=== PATIENT | female | born 1950 | race Caucasian/White ===

== ENCOUNTER 2020-12-10 05:49 | Day surgery (SDC) | payer MEDICARE ==
[2020-12-09 12:31] VITALS: BMI 27.6
[2020-12-10] MEDS ORDERED: EPINEPHrine 0.3 MG in Ophthalmic Irrigation Solution 500 ML IRR SCH (06:00)
[2020-12-10] MEDS ORDERED: Cyclopentolate 1% Opth Drop 2 ML BOT ONE (06:16)
[2020-12-10] MEDS ORDERED: Phenylephrine 2.5% Ophth Soln 5 ML BOT ONE (06:16)
[2020-12-10] MEDS ORDERED: Fentanyl 100 MCG/2 ML VIAL ONE (06:32)
[2020-12-10] MEDS ORDERED: Midazolam HCl 2 mg/2 ml Vial ONE (06:32)
[2020-12-10] MEDS ORDERED: Triamcinolone 40 MG/ML VIAL ONE (08:09)
[2020-12-10] MEDS ORDERED: Lidocaine 1% PF 5 ML VIAL ONE (08:09)
[2020-12-10] MEDS ORDERED: CEFAZOLIN 1 GM VIAL ONE (08:09)
[2020-12-10] MEDS ORDERED: Bupivacaine PF 0.75% SDV 10 ML ONE (08:09)
[2020-12-10] MEDS ORDERED: PROPOFOL 200 MG/20 ML VIAL ONE (08:09)
[2020-12-10] MEDS ORDERED: Maxitrol 0.1% Opth Oint 3.5 GM TUBE ONE (08:09)
[2020-12-10] MEDS ORDERED: Indocyanine Green 25 MG/10 ML VIAL ONE (08:09)
[2020-12-10] MEDS ORDERED: Lidocaine 4% PF 5 ML AMP ONE (08:09)
== END 2020-12-10 10:24 | disposition home or self-care (01) ==
LOC: SDC 05:49
PROVIDERS: ATTEND Ophthalmology Retina Specialist
PROC: 08T53ZZ Resection of Left Vitreous, Percutaneous Approach (ICD-10-PCS; principal; 2020-12-10)
PROC: 08NF3ZZ Release Left Retina, Percutaneous Approach (ICD-10-PCS; 2020-12-10)
DX: H35.342 Macular cyst, hole, or pseudohole, left eye (principal); I10 Essential (primary) hypertension; M19.90 Unspecified osteoarthritis, unspecified site; G89.29 Other chronic pain; M54.9 Dorsalgia, unspecified; Z87.891 Personal history of nicotine dependence; Z79.899 Other long term (current) drug therapy
CPT/HCPCS: 67025; J0171; J0690; J2250; J2704; J3010; J3301; J3490